=== PATIENT | male | born 1950 | race Caucasian/White ===

== ENCOUNTER → 2019-12-22 | Outpatient (CLI) | payer MEDICARE, OTHER ==
[~2019-12-22] MED LIST: ASPIR 8181 MG PO; CENTRUM SILVER1 EAC4 PO; CLOPIDOGREL75 MG PO; COLACE100 MG PO; FISH OIL 1,001000 M2 PO; LIPITOR 20 MG T20 M1 PO; NITROGLYCERIN0.4 MG SUBLING; SPIRIVA INH; TOPROL XL50 MG PO
--- NOTE | 2019-12-22 18:10 | CARDNUC ---
[place] [address] CARDIAC NUCLEAR IMAGING REPORT Name: LISANDRO SALAZAR Room: [facility]#: [id number] Admission: 12/22/19 Attend Phys: Chuckie Victoria Discharge: Date of : 50 Date of Service: 12/22/191809 Report #: [id number] THIS REPORT FOR: cc: Cande Benson MD, Kelly A. MD Liston, Michael J. MD [facility] ~ APPROVED REPORT Study performed: 12/22/2019 15:06:19 Exam: Nuclear Stress Test Indication: Chest pain, Dyspnea Patient Location: Out-Patient Stress Tech: Eden Otoole Stress Nurse: Claritza Zayas RN NM Tech:BERTIN Diaz Ht: 5 ft 10 in Wt: 185 lbs BSA: 2.02 m2 BP: 127/67 mmHg BMI: 26.54 Rhythm: 70 Medical History Medical History: Coronary artery disease with previous coronary artery bypass grafting and previous percutaneous coronary intervention. Medications: Aspirin, metoprolol, nitroglycerin, rosuvastatin Allergies: Lipitor and sulfas Cardiac Risk Factors: Age greater than 55, hyperlipidemia, hypertension, former tobacco use Previous Cardiac Procedures: Coronary artery bypass grafting, percutaneous coronary intervention Stress Test Details Stress Test: Pharmacologic stress testing performed using 0.4 mg of regadenoson per 5 mL given IV over 10 seconds. Reason for pharmacologic stress test: physical limitation. HR Resting HR: 70 bpm Max Heart Rate (APMHR): 151 bpm Max HR Achieved: 91 bpm Target HR (85% APMHR): 128 bpm % of APMHR: 60 Recovery HR: 86 [place] [address] CARDIAC NUCLEAR IMAGING REPORT Name: LISANDRO SALAZAR Room: [facility]#: [id number] Admission: 12/22/19 Attend Phys: Chuckie Victoria Discharge: Date of : 50 Date of Service: 12/22/19 1810 Report #: [id number] Resting BP: 127/67 mmHg Max BP: 123/59 mmHg ECG Resting ECG: Sinus Rhythm Stress ECG: Sinus Rhythm ST Change: Horizontal ST depression Maximum ST Deviation: 0.5 mm Arrhythmia: VPC's Recovery ECG: Sinus Rhythm Recovery ST Change: Horizontal ST depression Recovery ST Deviation: 0.5 mm Recovery Arrhythmia: VPC's Clinical The patient tolerated Lexiscan infusion without significant cardiac complaint. Stress ECG Conclusion The baseline twelve-lead EKG shows sinus rhythm without significant ST segment abnormality. EKGs obtained during and post Lexiscan infusion show sinus rhythm with 0.[address] segment depression diffusely. There were unifocal premature ventricular contractions noted. NM EXAM: Myocardial Perfusion REST/STRESS Imaging Protocol: Rest Tc-99m/Stress Tc-99m 1 day Resting Data Rest SPECT myocardial perfusion imaging was performed in supine position 30 minutes following the intravenous injection of 10.3 mCi of Tc-99m Sestamibi. Time of rest injection: 1335 Date: 12/22/2019 The images were gated to evaluate regional wall motion and calculate left ventricular ejection fraction. Administration Route: IV Pharmacologic Stress Pharmacologic stress test was performed by injecting Regadenoson 0.4 mg IV push followed by the intravenous injection of 31.2 mCi of Tc-99m Sestamibi. Time of stress injection: 1505 Date: 12/22/2019 Administration Route: IV Gated Stress SPECT was performed 40 minutes [place] [address] CARDIAC NUCLEAR IMAGING REPORT Name: LISANDRO SALAZAR Room: [facility]#: [id number] Admission: 12/22/19 Attend Phys: Chuckie Victoria Discharge: Date of : 50 Date of Service: 12/22/19 1810 Report #: [id number] The images were gated to evaluate regional wall motion and calculate left ventricular ejection fraction. Prone imaging was performed. Study Quality Study: Good Artifact: No artifact Study Data At rest, the left ventricular ejection fraction was 69%.. Post stress, the left ventricular ejection was 73%.. TID = 1.00. Perfusion Perfusion images obtained at rest and post Lexiscan stress show uniform uptake of the radioisotope throughout the myocardium. There were no defects to suggest infarct or ischemia. Wall Motion Normal left ventricular wall motion. Nuclear Conclusion ECG Findings: negative for ischemia Clinical Findings: negative for ischemia Nuclear Findings: negative for ischemia Exercise Capacity: not assessed Left Ventricular Function: normal Risk Study: low Perfusion images show no defect to suggest infarct or ischemia. Left ventricular systolic function appears normal on gated studies. This is a low risk study. <Conclusion> The baseline twelve-lead EKG shows sinus rhythm without significant ST segment abnormality. EKGs obtained during and post Lexiscan infusion show sinus rhythm with 0.[address] segment depression diffusely. There were unifocal premature ventricular contractions noted. <ELECTRONICALLY SIGNED> By: Kunal Andres MD, FACC 12/22/191809 09 09 Kunal Andres MD, FACC /INF
== END ==
LOC: M.NUC 12-13 15:25
PROVIDERS: ATTEND Internal Medicine
DX: I48.91 Unspecified atrial fibrillation (principal); I42.9 Cardiomyopathy, unspecified; R06.00 Dyspnea, unspecified; I50.20 Unspecified systolic (congestive) heart failure; Z95.5 Presence of coronary angioplasty implant and graft